=== PATIENT | female | born 1995 | race Caucasian/White ===

== ENCOUNTER 2017-02-17 22:12 | Emergency (ER) | payer OTHER ==
[~2017-02-17] VITALS: Ht 162.6 cm; Wt 63.6 kg
[2017-02-17 22:07] VITALS: TEMP 37; Ht 162.6 cm; Wt 63.6 kg
[2017-02-17 22:20] VITALS: O2SAT 98
[2017-02-17 23:01] LABS: BUN/CREATININE RATIO 8.3 (10-20); CALCIUM 8.7 mg/dl (8.5-10.1); CREATININE 0.86 mg/dl (0.60-1.20); POTASSIUM 2.9 mmol/L (3.5-5.1)
[2017-02-17] MEDS ORDERED: POTASSIUM CHLORIDE 10 MEQ TABCR PO STA (23:40)
--- NOTE | 2017-02-18 03:50 | EMERGENCY ROOM VISIT NOTE ---
History First contact with patient: 22:14 Chief Complaint: ALCOHOL OVERDOSE Stated Complaint: ALCOHOL OVERDOSE Nursing Triage Summary: pt arrives via BLS per BLS pt was found unconscious in the bathroom she arrives conscious and talking states "I drank a lot of shots." "please call my mom." pt states "I just want to sleep." History of Present Illness The patient is a 21 year old female who presents to the Emergency Room with complaints of alcohol intoxication. Patient was at the concert and was vomiting and was brought here. Patient states she drank a lot of alcohol. No drugs. Patient denies fall, chest pain, dyspnea or any other medical complaints. Review of Systems See HPI for pertinent positives & negatives. A total of 10 systems reviewed and were otherwise negative. Past Medical/Surgical History None Social History Smoking Status: Never Smoker Current/Historical Medications Unable to Obtain Active Prescriptions or Reported Meds Physical Exam Vital Signs Date Time Temp Pulse Resp B/P (MAP) Pulse Ox O2 Delivery O2 Flow Rate FiO2 02/18/17 03:00 69 18 94/48 96 Room Air 02/18/17 02:00 61 14 80/44 97 Room Air 02/18/17 01:14 58 14 90/49 96 Room Air 02/18/17 00:00 62 18 92/52 98 Room Air 02/17/17 23:12 67 14 80/44 96 Room Air 02/17/17 22:21 78 02/17/17 22:21 58 18 87/54 98 Room Air 02/17/17 22:20 98 Room Air 02/17/17 22:20 Room Air 02/17/17 22:07 37.0 72 16 140/72 98 Room Air Physical Exam PHYSICAL EXAM: VITALS: Vitals are noted on the nurse's note and reviewed by myself. Vital signs stable. GENERAL: white female with ETOH odor, in no acute distress, nondiaphoretic, well -developed well-nourished. The patient is visibly intoxicated. SKIN: The skin was without obvious lacerations, abrasions, or rashes. There is no tenting of the skin. Capillary reflex less than 2 seconds. HEENT: Normocephalic, atraumatic. PERRLA. EOMI. Conjunctiva with mild injection without icterus. Tympanic membranes without erythema or effusion bilaterally no hemotympanum. External auditory canals are clear. Nares patent bilaterally. No epistaxis. Oropharynx without erythema or exudate. Uvula midline. Oral mucosal moist. No lymphadenopathy. Neck is supple without cervical spine tenderness. HEART: Regular rate and rhythm without murmurs gallops or rubs. Peripheral pulses 2+. LUNGS: Clear to auscultation bilaterally without wheezes, rales or rhonchi. ABDOMEN: Positive bowel sounds x 4. Normal tympanic percussion. Soft, nontender, without masses or organomegaly. MUSCULOSKELETAL: Gross motor function of the upper and lower extremities intact. The patient has a staggering gait. NEUROLOGIC: The patient is visibly intoxicated. Once they were more sober they were alert and oriented to person place and time. Medical Decision & Procedures Laboratory Results 02/17/17 22:18 Test 02/17/17 22:18 Anion Gap 12.0 mmol/L (3-11) Est Creatinine Clear Calc Drug Dose 90.9 ml/min Estimated GFR () 113.5 Estimated GFR (Non- 97.9 BUN/Creatinine Ratio 8.3 (10-20) Calcium Level 8.7 mg/dl (8.5-10.1) Ethyl Alcohol mg/dL 241.0 mg/dl (0-3) ED Course Prior records/ancillary studies reviewed. Triage Nursing notes reviewed. Additional history obtained from EMS. The patient's history was concerning for altered mental status and a possible alcohol overdose. Differential diagnosis: Etiologies such as alcohol intoxication, toxicologic, infection, hypoglycemia, electrolyte abnormalities, cardiac sources, intracerebral event, neurologic, as well as others were entertained. Physical examination: As above. The patient is clinically intoxicated. no trauma noted. ER treatment provided: Monitoring Aspiration precautions The patient was frequently reassessed. Diagnostic interpretation by me: Cardiac monitoring did not reveal any evidence of dysrhythmia. The labs revealed hypokalemia and this was replaced orally. The patient's blood alcohol level was 241 mg/dL. The patient's history was reviewed once they were more coherent and their intoxication cleared. The patient states they have been in good health recently and had no medical complaints. The patient admitted to consuming alcohol. No additional concerning findings were noted. The patient complained of no symptoms to suggest assault. This appears to be consistent with an isolated overdose of alcohol. By the evaluation outlined above emergent etiologies such as trauma, infection, hypoglycemia, electrolyte abnormalities, cardiac sources, intracerebral event, neurologic,as well as others were deemed relatively unlikely. The patient was informed about the findings as listed above. The patient was counseled on the dangers of excessive alcohol use. I gave my usual and customary discussion regarding this issue. All questions were answered and the patient was pleased with the treatment. Return instructions were outlined and the patient was discharged in stable condition once their mental status improved and a safe destination was confirmed. Outpatient prescription management: None Referral: The patient was referred back to their primary care physician for follow-up in 2 to 3 days for a recheck of their current condition. Medical Decision as above Medication Reconcilliation Current Medication List: was personally reviewed by me Blood Pressure Screening Patient's blood pressure: Normal blood pressure Impression Primary Impression: Alcoholic intoxication Additional Impression: Hypokalemia Departure Information Dispostion Home / Self-Care Condition GOOD Prescriptions Unable to Obtain Active Prescriptions or Reported Meds Referrals No Doctor, Assigned (PCP) Patient Instructions My [facility] [place] [employer] Additional Instructions Keep well-hydrated. Tylenol every 6 hours as needed for pain (Maximum 3000 mg Tylenol in 24 hr period). Follow up with family doctor and/or health services as needed. No driving for the next 24 hours. Recommend no alcohol for the next 48 hours and avoid binge drinking in the future. Return to ER sooner for chest pain, abdominal pain, worsening signs or symptoms or as needed. Problem Qualifiers Primary Impression: Alcoholic intoxication Complication of substance-induced condition: uncomplicated Qualified Codes: F10.920 - Alcohol use, unspecified with intoxication, uncomplicated
[2017-02-18 04:49] VITALS: BP 98/53; PULSE 127; O2SAT 97
[2017-02-18] MEDS ORDERED: POTASSIUM CHLORIDE 10 MEQ TABCR ONE (04:59)
== END 2017-02-18 05:07 | disposition home or self-care (01) ==
LOC: C.EDB 22:14
DX: F10.129 Alcohol abuse with intoxication, unspecified (principal); Y90.8 Blood alcohol level of 240 mg/100 ml or more; E87.6 Hypokalemia

== ENCOUNTER 2021-01-24 07:24 | Inpatient (IN) ==
[2021-01-24] MEDS ORDERED: OXYTOCIN 30 UNITS/500 ML BAG IV PRN ×4 (07:28→20:26)
[2021-01-24] MEDS ORDERED: PENICILLIN G POTASSIUM 6 MU in DEXTROSE 5% 250 ML IV STA (07:30)
[2021-01-24 08:02] LABS: Hematocrit (blood only) 32.5 % (37-47); Hemoglobin 11.3 g/dL (12.0-16.0); Mean Corpuscular Hemoglobin 31.3 pg (25-34); Mean Corpuscular Hgb Conc 34.8 g/dL (32-36); Mean Platelet Volume 9.1 fL (7.4-10.4); Platelet Count 216 K/uL (130-400); RDW Coefficient of Variation 14.4 % (11.5-14.5); RDW Standard Deviation 47.5 fL (36.4-46.3); Red Blood Count 3.61 M/uL (4.2-5.4); White Blood Count 9.07 K/uL (4.8-10.8)
[2021-01-24] MEDS: LACTATED RINGER'S 1,000 ML IV PRN ×2 (08:08→15:11)
--- NOTE | 2021-01-24 09:03 | History & Physical Report ---
Date of Service January 24, 2021 Assessment & Plan (1) GBS carrier: (2) Encounter for induction of labor: (3) Rupture of membranes with clear amniotic fluid: Plan: 25yo Female presents to L&D with ROM for IOL, at 40 2/7wks. She is GBS+ -continue to monitor FHR and tocodynomometer -started Penicillin G -starting pitocin Admission and Anticipated Discharge Date Admission Date: January 24, 2021 History of Present Illness Chief Complaint: ROM Primary Care Provider: Eddie Morfin III, MAREN 25yo Female presents to L&D for ROM at 5:30am this morning, originally scheduled for IOL today. She states she felt a gush of fluid and started feeling contractions afterwards, she feels FM. She has been attending OB appointments regularly. She takes a vitamin at home. Blood Type B Positive 06/12/20 Antibody Screen NEGATIVE 06/12/20 01/24/21 07:49 Hgb 11.3 L Hct 32.5 L WBC 9.07 K/uL Plt Count 216 Rubella IgG Antibody Immune (Immune) 06/12/20 Rapid Plasma Reagin Nonreactive (Nonreactive) 06/12/20 Hepatitis B Surface Antigen Neg (Neg) 06/12/20 HIV (1&2) Ab and P24 Ag, 4th Gener Neg (Neg) 06/12/20 Glucose 1 Hour 50 gm Load 180 mg/dl (70-130) H 08/09/20 Maternal Serum Alpha Fetoprotein 42.0 ng/mL 08/09/20 GBS Positive Chlamydia trachomatis RNA NOT DETECTED (NOT DETECTED) 06/12/20 Neisseria gonorrhoeae RNA NOT DETECTED (NOT DETECTED) 06/12/20 Alpha Fetoprotein Triple Screen SEE NOTE 08/09/20 Allergies Allergy/AdvReac Type Severity Reaction Status Date / Time No Known Allergies Allergy Verified 01/23/21 15:06 Home Medications Medication Instructions Recorded Confirmed Type prenat.vits,tiffany,ntc-[id number] 1 tab PO DAILY 06/05/20 01/24/21 History Saccharomyces boulardii [Daily PO DAILY 11/27/20 01/23/21 History Probiotic (S. boulardii)] Patient History Surgical History No history of previous surgery Family History (Updated 06/05/20 @ 15:22 by Kristin Alonso) Grandfather (Maternal) Diabetes Other No pertinent family history Denies family history of Ovarian cancer Prostate cancer Myocardial infarction Breast cancer Colorectal cancer Social History (Updated 06/05/20 @ 15:23 by Kristin Alonso) Smoking Status: Never smoker Second Hand Exposure: Yes; Hx Alcohol Use: Yes Alcohol type: wine and other Alcohol Intake Frequency: 2-3 x/Week Hx Substance Use: No Preferred Language: Pakistani Communication Ability: Effective Visual Impairment: No Limitations Hearing Ability: Normal Beliefs That Will Affect Care: None marital status: marital status details: JAVIER: Jostin (28) [phone] Current Living Situation: Spouse Current Living Situation Comment: lives with JAVIER, his sisters, 1 dog. 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 Denies breast pain. Denies dysuria. Denies headache or changes in vision. Physical Exam Physical Exam: General: Alert, oriented. No acute distress. Cardiac: Regular rate and rhythm, no murmurs/rubs/gallops. Respiratory: Clear to auscultation bilaterally a/p, no wheezes/rales/rhonchi. No increased work of breathing. Symmetrical chest rise. No respiratory distress. Pelvic: Dilation 2.5 cm; Effacement 50%; Station -[address] Meyer Lower Extremities: No lower extremity edema or swelling. No deep calf pain. Rosalva's negative bilaterally Baseline:145 Variability:moderate Accelerations:none Decelerations:none Results & Data ([facility]) Vital Signs (Past 12 Hours) Vital Signs Temp Pulse Resp BP 01/24/21 07:32 88 108/65 01/24/21 07:31 36.8 C 88 20 108/65 Laboratory Results 01/24/21 01/24/21 01/24/21 Range/Units 07:49 07:45 07:45 WBC 9.07 (4.8-10.8) K/uL RBC 3.61 L (4.2-5.4) M/uL Hgb 11.3 L (12.0-16.0) g/dL Hct 32.5 L (37-47) % MCV 90.0 (80-100) fL MCH 31.3 (25-34) pg MCHC 34.8 (32-36) g/dL RDW Std Deviation 47.5 H (36.4-46.3) fL RDW Coeff of Anoop 14.4 (11.5-14.5) % Plt Count 216 (130-400) K/uL MPV 9.1 (7.4-10.4) fL COVID-19 Eval Order Covid19 [facility] SARS-CoV-2, RNA, NAAT NEGATIVE (NEGATIVE) Medications Administered Current Inpatient Medications Oxytocin (Pitocin) 30 units in 500 mls @ 333.333 mls/hr IV .Q1H30M PRN; Protocol PRN Reason: Bleeding Control Stop: 02/23/21 07:27 Penicillin G Potassium 3 mu/ (Dextrose) 106 mls @ 100 mls/hr IV Q4H PRN PRN Reason: Give until delivery Stop: 02/03/21 11:29 Oxytocin (Pitocin) 30 units in 500 mls @ 2 mls/hr IV .Q24H PRN; Protocol PRN Reason: Labor Induction/Augmentation Stop: 01/26/21 07:27 Lactated Ringer's (Lr) 1,000 mls @ 125 mls/hr IV .Q8H PRN; Protocol PRN Reason: L&D Protocol Stop: 01/26/21 07:27 Last Admin: 01/24/21 08:08 Dose: 125 mls/hr Documented by: Code Status & VTE Plan Code Status Full code VTE Prophylaxis Plan VTE Prophylaxis will be ordered: No Supervising Physician Co-Signing Physician Notes Resident Physician Supervision Note: I interviewed and examined the patient. Discussed with Dr. Zhu and agree with findings and plan as documented in the note. Any exceptions or clarifications are listed here: IUP at 40+ with gross srom and early labor. Fetus category one. Starting to contract. gbs positive and will treat with pcn. pit as indicated, epidural on demand, anticipate . Documented By: Natalia Carter MD, FACOG Resident Activity Tracking Resident Involvement: Resident Care Provided Care Provided: OB Delivery
[2021-01-24] MEDS ORDERED: ePHEDrine sulfate 50 MG/ML AMP ONE (12:33)
[2021-01-24] MEDS ORDERED: BUPIVACAINE 0.25% 30 ML VIAL ONE (12:34)
[2021-01-24] MEDS ORDERED: fentaNYL 2MCG/ML ROPIVACAINE 1.25MG/ML 100 ML BAG EPI ONE (12:34)
[2021-01-24] MEDS ORDERED: fentaNYL citrate 100 MCG/2 ML VIAL ONE (12:34)
[2021-01-24] MEDS ORDERED: SODIUM CHLORIDE 0.9% INJ 10 ML VIAL ONE (12:34)
[2021-01-24] MEDS: PENICILLIN G POTASSIUM 3 MU in DEXTROSE 5% 100 ML IV PRN ×2 (12:40→16:42)
[2021-01-24] MEDS ORDERED: NALBUPHINE HCL INJ 10 MG/ML AMP IV PRN (13:06)
[2021-01-24] MEDS ORDERED: fentaNYL 2MCG/ML ROPIVACAINE 1.25MG/ML 100 ML BAG EPI PRN (13:06)
[2021-01-24] MEDS ORDERED: NALOXONE HCL 1 MG in SODIUM CHLORIDE 0.9% 1000ML 1,000 ML IV PRN (13:06)
[2021-01-24] MEDS ORDERED: NALOXONE HCL 0.4 MG/1 ML VIAL/CARP IV PRN (13:06)
[2021-01-24] MEDS ORDERED: ONDANSETRON INJ 2 MG/ML 2 ML VIAL IV PRN (13:06)
[2021-01-24] MEDS ORDERED: ePHEDrine sulfate 50 MG/ML AMP IV PRN (13:06)
[2021-01-24] MEDS ORDERED: diphenhydrAMINE 50 MG/ML VIAL IV PRN (13:06)
--- NOTE | 2021-01-24 13:13 | Anesthesiology Consultation ---
Date of Service January 24, 2021 Assessment & Plan Chart Review Chart Review: Patient NOT seen in Pre Admission Testing and Acceptable Risk for Labor Epidural Consults Requested none ASA ASA2 Proposed Anesthesia Anesthesia Type: Labor Epidural and CSE Risk / Benefits Reviewed With: PT / POA / Parent / Guardian, Accepts Plan and Informed Consent Obtained History Height/Weight Height: 5 ft 4 in Weight: 73.482 kg Allergies Allergy/AdvReac Type Severity Reaction Status Date / Time No Known Allergies Allergy Verified 01/23/21 15:06 Medications Home Medications Medication Instructions Recorded Confirmed Last Taken prenat.vits,tiffany,bna-ymfe-fwnoe 1 tab PO DAILY 06/05/20 01/24/21 Unknown Saccharomyces boulardii [Daily PO DAILY 11/27/20 01/23/21 Unknown Probiotic (S. boulardii)] Active Medications Generic Name Dose Route Start Last Admin Trade Name Freq PRN Reason Stop Dose Admin Penicillin G Potassium 3 mu/ 106 mls @ 100 mls/hr 01/24/21 11:30 01/24/21 12:40 Dextrose IV 02/03/21 11:29 100 mls/hr Q4H PRN Administration Give until delivery Lactated Ringer's 1,000 mls @ 125 mls/hr 01/24/21 07:28 01/24/21 08:08 Lr IV 01/26/21 07:27 125 mls/hr .Q8H PRN Administration L&D Protocol Protocol Oxytocin 30 units in 500 mls @ 5 mls/hr 01/24/21 09:39 01/24/21 11:35 Pitocin IV 01/26/21 09:38 0.3 units/hr .Q24H PRN 5 mls/hr Labor Induction/Augmentation Titration Protocol 0.3 UNITS/HR NPO Date Last Intake of Fluids: 01/24/21 Time Last Intake of Fluids: 12:00 Date Last Intake of Solids: 01/24/21 Time Last Intake of Solids: 06:30 Exercise / Class Metabolic Activity II 4-5 Yardwork/Stairs/Walk up hill Past Family History Family History (Updated 06/05/20 @ 15:22 by Kristin Alonso) Grandfather (Maternal) Diabetes Other No pertinent family history Denies family history of Ovarian cancer Prostate cancer Myocardial infarction Breast cancer Colorectal cancer Past Surgical History Surgical History No history of previous surgery Past Anesthesia History No Hx of Anesthesia Complications and No Family Hx of Anesthesia Complications History of PONV No Hx of PONV and No Hx of Motion Sickness Social History Smoking Status: Never smoker Hx Alcohol Use: Yes Alcohol type: wine and other Hx Substance Use: No substance use type: does not use Review of Systems no chest pain or sob Physical Exam Vital Signs Last Vital Signs Temp 36.7 C 01/24/21 11:27 Pulse 89 01/24/21 13:07 Resp 20 01/24/21 11:27 BP 100/65 01/24/21 11:27 Pulse Ox 100 01/24/21 13:07 ENMT Mouth: no TMJ abnormality Thyromental Distance: > or= 3.5 Finger Breadths Mallampati Class: II Neck normal visual inspection Respiratory normal respiratory effort Auscultation: lungs clear to auscultation bilaterally Cardiovascular Rate/Rhythm: regular rate and regular rhythm Musculoskeletal Spine: normal cervical ROM Neurologic moves all extremities Psychiatric Orientation: alert and oriented x 3 Testing Laboratory Results 01/24/21 07:49
--- NOTE | 2021-01-24 14:17 | Labor Progress Brief Note ---
Date of Service January 24, 2021 Subjective comfortable after epidural Assessment & Plan (1) Rupture of membranes with clear amniotic fluid: (2) Encounter for induction of labor: Plan: continue current management . fetus cat 1 . anticipate . Admission and Anticipated Discharge Date Admission Date: January 24, 2021 Physical Exam Constitutional: WD/WN, vitals as above Psychiatric: A+Ox3, euthymic affect Genitourinary: OB Exam Abdomen: + regular contractions (q3-4min, pit at 5) Manual OB Exam: + cervical dilation (6), + cervical effacement (100) and + station -1 OB Exam Monitor Tracing: + external FHT monitor used, + category I and + normal FHT variability (140s); no early decelerations present and no late decelerations present Results & Data ([facility]) Vital Signs (Past 12 Hours) Vital Signs Temp Pulse Resp BP Pulse Ox 01/24/21 14:12 74 99 01/24/21 14:08 76 95/53 L 01/24/21 14:07 73 100 01/24/21 14:03 78 103/64 01/24/21 14:02 84 100 01/24/21 14:00 74 101/69 01/24/21 13:57 81 100 01/24/21 13:52 77 110/71 100 01/24/21 13:47 73 106/67 100 01/24/21 13:43 69 106/66 01/24/21 13:42 69 100 01/24/21 13:37 70 96/59 L 100 01/24/21 13:35 80 88/55 L 01/24/21 13:33 73 84/52 L 01/24/21 13:32 78 100 01/24/21 13:27 81 100/60 100 01/24/21 13:25 73 100/60 01/24/21 13:23 82 111/58 L 01/24/21 13:22 81 100 01/24/21 13:17 76 100 01/24/21 13:12 65 100 01/24/21 13:07 89 100 01/24/21 11:27 36.7 C 71 20 100/65 01/24/21 09:46 36.4 C L 20 01/24/21 07:32 88 108/65 01/24/21 07:31 36.8 C 88 20 [id number] Coding Level of Care Code None Diagnoses Rupture of membranes with clear amniotic fluid Encounter for induction of labor Z34.90
[2021-01-24] MEDS ORDERED: MINERAL OIL 30 ML UDC ONE (18:05)
--- NOTE | 2021-01-24 18:42 | Labor Progress Brief Note ---
Date of Service January 24, 2021 Subjective pushing for about one hour. good effort Assessment & Plan (1) Encounter for induction of labor: Plan: recent tachycardia, good effort. no maternal fever. fetus reassuring. continue pushing . has room, anticipate . Admission and Anticipated Discharge Date Admission Date: January 24, 2021 Physical Exam Constitutional: WD/WN, vitals as above Psychiatric: A+Ox3, euthymic affect Genitourinary: cx--c/c/+2, fanny toco--q2-3min efm--180s with mod variability, accels present, variables with some pushing Results & Data ([facility]) Vital Signs (Past 12 Hours) Vital Signs Temp Pulse Resp BP Pulse Ox 01/24/21 18:37 105 H 100 01/24/21 18:33 98 H 88 L 01/24/21 18:32 109 H 100 01/24/21 18:27 86 88 L 01/24/21 18:25 101 H 87 L 01/24/21 18:22 94 H 100 01/24/21 18:19 108 H 93 01/24/21 18:17 111 H 100 01/24/21 18:12 91 H 71 L 01/24/21 18:07 85 100 01/24/21 18:02 123 H 100 01/24/21 18:00 109 H 84 L 01/24/21 17:57 99 H 77 L 01/24/21 17:56 112 H 99/62 L 01/24/21 17:52 90 100 01/24/21 17:48 101 H 88 L 01/24/21 17:47 104 H 92 01/24/21 17:43 102 H 91 01/24/21 17:42 102 H 98 01/24/21 17:41 37.0 C 125 H 20 102/60 01/24/21 17:37 100 H 98 01/24/21 17:32 84 100 01/24/21 17:29 96 H 88 L 01/24/21 17:27 69 97 01/24/21 17:26 74 108/63 01/24/21 17:24 80 92 01/24/21 17:22 71 100 01/24/21 17:17 83 78 L 01/24/21 17:12 72 100 01/24/21 17:07 75 96 01/24/21 17:02 72 100 01/24/21 16:57 69 100 01/24/21 16:56 80 106/76 01/24/21 16:52 74 100 01/24/21 16:47 85 100 01/24/21 16:42 73 100 01/24/21 16:41 78 93 01/24/21 16:40 71 105/64 01/24/21 16:37 75 100 01/24/21 16:32 75 100 01/24/21 16:29 73 93 01/24/21 16:27 74 100 01/24/21 16:25 77 98/57 L 01/24/21 16:23 99 H 90 01/24/21 16:22 84 97 01/24/21 16:17 78 96 01/24/21 16:12 73 100 01/24/21 16:10 81 111/61 01/24/21 16:07 88 98 01/24/21 16:02 93 H 100 01/24/21 15:57 78 100 01/24/21 15:56 76 115/74 94 01/24/21 15:52 79 100 01/24/21 15:47 88 100 01/24/21 15:42 89 100 01/24/21 15:41 87 121/78 01/24/21 15:37 90 100 01/24/21 15:32 36.4 C L 82 16 99 01/24/21 15:27 80 100 01/24/21 15:25 82 112/77 01/24/21 15:22 84 100 01/24/21 15:17 79 100 01/24/21 15:12 80 100 01/24/21 15:10 81 107/74 01/24/21 15:07 84 100 01/24/21 15:02 79 100 01/24/21 14:57 80 100 01/24/21 14:55 76 112/73 01/24/21 14:52 66 100 01/24/21 14:47 97 H 99 01/24/21 14:42 77 100 01/24/21 14:41 75 105/70 01/24/21 14:37 78 100 01/24/21 14:32 72 100 01/24/21 14:27 68 98 01/24/21 14:26 72 20 100/64 01/24/21 14:22 75 99 01/24/21 14:17 71 100 01/24/21 14:12 74 99 01/24/21 14:08 76 95/53 L 01/24/21 14:07 73 100 01/24/21 14:03 78 103/64 01/24/21 14:02 84 100 01/24/21 14:00 74 101/69 01/24/21 13:57 81 100 01/24/21 13:52 77 110/71 100 01/24/21 13:47 73 106/67 100 01/24/21 13:43 69 106/66 01/24/21 13:42 69 100 01/24/21 13:37 70 96/59 L 100 01/24/21 13:35 80 88/55 L 01/24/21 13:33 36.8 C 73 18 84/52 L 01/24/21 13:32 78 100 01/24/21 13:27 81 100/60 100 01/24/21 13:25 73 100/60 01/24/21 13:23 82 111/58 L 01/24/21 13:22 81 100 01/24/21 13:17 76 100 01/24/21 13:12 65 100 01/24/21 13:07 89 100 01/24/21 11:27 36.7 C 71 20 100/65 01/24/21 09:46 36.4 C L 20 01/24/21 07:32 88 108/65 01/24/21 07:31 36.8 C 88 20 108/65 Coding Level of Care Code None Diagnoses Encounter for induction of labor Z34.90
--- NOTE | 2021-01-24 20:21 | Delivery Summary ---
Vaginal Delivery Summary Date of Service January 24, 2021 Pre-operative Diagnosis: at 40 2/7 weeks srom Post-operative Diagnosis: same Procedure: epidural pit augmentation periclitoral and first degree laceration and repair EBL: 350cc Anesthesia: epidural Procedure: The patient was admitted with gross srom for clear fluid. She was monitored expectantly and then required pitocin augmentation. She then progressed to c/c/+1. The patient pushed for 2.5hours to deliver a viable male in fanny position. The head was very slow to crown and there was a concern for the possiblity of shoulder dystocia. On the last push, the patient was placed flat and Alfa maneuver done. After the head delivered the anterior shoulder (left) delivered easily with forward momentum. The rest of the baby was then delivered without difficulty. The was placed in the maternal abdomen for drying and attention. Cord was clamped and cut at 30 secs of life. Cord blood and segment obtained. Placenta delivered spontaneous, intact with a three vessel cord. Cervix/sulci/rectum/perineum were intact. A first degree perineal laceration and a periclitoral laceration were repaired in the normal standard fashion. Hemostasis obtained with dilute pitocin and fundal massage. Apgars were 8/9. Mother and baby doing well at the end of the delivery. Vaginal Delivery Summary and 1st Degree LAC [facility] Vaginal Delivery Charge Delivery Type Details: and 1st Degree LAC
[2021-01-24] MEDS ORDERED: bisacodyL 10 MG SUPP PR PRN (20:26)
[2021-01-24] MEDS ORDERED: ACETAMINOPHEN 325 MG TAB PO PRN (20:26)
[2021-01-24] MEDS ORDERED: SUPERCREAM 0.870% 15 GM JAR EXT PRN (20:26)
[2021-01-24] MEDS ORDERED: HYDROCORTISONE ACETATE 25 MG SUPP PR PRN (20:26)
[2021-01-24] MEDS ORDERED: DIPHTHERIA/TETANUS/PERTUSSIS 0.5 ML SYR/VIAL IM ONE (20:26)
[2021-01-24] MEDS: DOCUSATE SODIUM 100 MG CAP PO SCH (21:02)
[2021-01-24] MEDS: BENZOCAINE 20% AER SPR 82.5 GM CAN EXT PRN (22:50)
--- NOTE | 2021-01-24 22:55 | Anesthesia Procedure Note ---
Date of Service January 24, 2021 Anesthesia Post Epidural Note Vital Signs Vital Signs: Temp Pulse Resp BP Pulse Ox 36.9 C 75 18 102/66 99 01/24/21 22:10 01/24/21 22:08 01/24/21 22:10 01/24/21 22:08 01/24/21 20:04 Pain Intensity Bilateral Lower Abdomen: Pain Intensity: 2 Notes Mental Status: alert / awake / arousable and participated in evaluation Nausea / Vomiting: adequately controlled Pain: adequately controlled Airway Patency, RR, SpO2: stable & adequate BP & HR: stable & adequate Hydration State: stable & adequate Neuraxial Anesthesia: was administered and sensory block is resolving Anesthetic Complications: no major complications apparent and Pt Satisfied with anesthetic care Epidural: Removed without complications and With tip intact
[2021-01-25 06:55] LABS: Hematocrit (blood only) 31.3 % (37-47); Hemoglobin 10.6 g/dL (12.0-16.0); Mean Corpuscular Hemoglobin 30.4 pg (25-34); Mean Corpuscular Hgb Conc 33.9 g/dL (32-36); Mean Corpuscular Volume 89.7 fL (80-100); Platelet Count 232 K/uL (130-400); RDW Coefficient of Variation 14.6 % (11.5-14.5); RDW Standard Deviation 47.4 fL (36.4-46.3); Red Blood Count 3.49 M/uL (4.2-5.4); White Blood Count 13.02 K/uL (4.8-10.8)
[2021-01-25] MEDS: IBUPROFEN 600 MG TAB PO PRN ×2 (07:30→20:15)
--- NOTE | 2021-01-25 08:35 | Obstetrical Progress Note ---
Date of Service <Karin Zhu DO - Last Filed: 01/25/21 08:35> January 25, 2021 Assessment & Plan <Karin Zhu DO - Last Filed: 01/25/21 08:35> (1) Encounter for care and examination after delivery: 25 yo post op day1 from , doing well. -Continue routine post care. -vital signs reviewed and WNL (Tmax 36.8) -Blood Type AB+, GBS+, Rubella immune -Encourage ambulation, monitor and control pain with Motrin, tylenol PRN, resume regular diet, monitor lochia -encourage breast feeding -hemoglobin 11.3 (01/24) -patient complains of weakness of left leg onset yesterday has improved today, may be secondary to residual from epidural or strain from labor, will continue to monitor Day #:: 1 <Natalia Carter MD, FACOG - Last Filed: 01/25/21 08:40> (1) Encounter for care and examination after delivery: Subjective <Karin Zhu DO - Last Filed: 01/25/21 08:35> Ambulation: limited ambulation (weakness in left leg, occasionally gives out when walking, has fallen once, onset since yesterday post delivery buthas improved as of today) Voiding: no voiding problems Passing Gas:: Yes Diet Tolerance:: regular diet Lochia:: Small Feeding Type:: breast feeding Current Pain Level(1-10): 2 (pain well controlled on medication) Review of Systems Positive muscle weakness Denies fever, chills, sweats Denies shortness of breath, difficulty breathing, chest pain, palpitations, chest pressure. Denies breast pain. Denies dysuria. Denies headache or changes in vision. Denies numbness tingling of extremities, loss of sensation Physical Exam <Karin Zhu DO - Last Filed: 01/25/21 08:35> General: Alert, oriented. No acute distress. Cardiac: Regular rate and rhythm, no murmurs/rubs/gallops. Respiratory: Clear to auscultation bilaterally a/p, no wheezes/rales/rhonchi. No increased work of breathing. Symmetrical chest rise. No respiratory distress. Abdomen: Soft, nontender, nondistended. Bowel sounds present. Uterus: Uterine fundus firm, palpable at cm below umbilicus. Lower Extremities: No lower extremity edema or swelling. No deep calf pain. Rosalva's negative bilaterally. Musculoskeletal: 3/5 strength left leg extension, 5/5 strength left hip extension foot dorsiflexion plantarflexion, 5/5 strength on right leg Neuro: no loss of light touch sensation in b/l LE Results & Data ([facility]) <Karin Zhu, DO - Last Filed: 01/25/21 08:35> Vital Signs (Past 12 Hours) Vital Signs Temp Pulse Pulse Resp BP BP Pulse Ox 01/25/21 03:50 36.8 C 69 16 99/67 L 100 01/24/21 23:20 36.8 C 86 17 97/66 L 99 01/24/21 22:45 18 01/24/21 22:10 36.9 C 18 01/24/21 22:08 75 102/66 01/24/21 21:53 90 105/61 01/24/21 21:40 18 01/24/21 21:39 71 104/66 01/24/21 21:38 77 93/57 L 01/24/21 21:24 89 95/53 L 01/24/21 21:10 18 01/24/21 21:08 78 109/64 01/24/21 20:55 18 01/24/21 20:53 78 109/63 01/24/21 20:40 18 01/24/21 20:38 94 H 124/66 Laboratory Results 01/25/21 Range/Units 06:36 WBC 13.02 H (4.8-10.8) K/uL RBC 3.49 L (4.2-5.4) M/uL Hgb 10.6 L (12.0-16.0) g/dL Hct 31.3 L (37-47) % MCV 89.7 (80-100) fL MCH 30.4 (25-34) pg MCHC 33.9 (32-36) g/dL RDW Std Deviation 47.4 H (36.4-46.3) fL RDW Coeff of Anoop 14.6 H (11.5-14.5) % Plt Count 232 (130-400) K/uL MPV 9.0 (7.4-10.4) fL Medications Administered Current Inpatient Medications Acetaminophen (Acetaminophen 325 Mg Tab) 650 mg PO Q6H PRN PRN Reason: Pain/MONTALVO/Fever Stop: 02/23/21 20:25 Benzocaine (Benzocaine 20% Aer Spr 82.5 Gm Can) 1 appln EXT PRN PRN PRN Reason: Perineal Discomfort Stop: 02/23/21 20:25 Last Admin: 01/24/21 22:50 Dose: 82.5 appln Documented by: Bisacodyl (Bisacodyl 5 Mg Tabec) 5 mg PO 1999 [facility] Stop: 01/25/21 20:01 Bisacodyl (Bisacodyl 10 Mg Supp) 10 mg PA DAILY PRN PRN Reason: No BM on 2nd post- day Stop: 02/23/21 20:25 Cocaine HCl (Supercream 0.870% 15 Gm Jar) 1 gm EXT BID PRN PRN Reason: Hemorrhoidal Inflammation Stop: 02/07/21 20:25 Docusate Sodium (Docusate Sodium 100 Mg Cap) 100 mg PO DAILY@ [facility] Stop: 02/23/21 20:59 Last Admin: 01/24/21 21:02 Dose: Not Given Documented by: Hydrocortisone (Hydrocortisone Acetate 25 Mg Supp) 25 mg PA BID PRN PRN Reason: Hemorrhoidal Inflammation Stop: 02/23/21 20:25 Oxytocin (Pitocin) 30 units in 500 mls @ 333.333 mls/hr IV .Q1H30M PRN; Protocol PRN Reason: Bleeding Control Last Titration: 01/24/21 22:45 Dose: Infused Documented by: Ibuprofen (Ibuprofen 600 Mg Tab) 600 mg PO Q4H PRN PRN Reason: Pain/MONTALVO/Cramping/Fever Stop: 02/23/21 20:25 Prenat Multivit/[place]/Iron/Folic Ac ( Vitamin 1 Tab) 1 tab PO DAILY@08 [facility] Stop: 02/24/21 07:59 <Natalia Carter MD, FACOG - Last Filed: 01/25/21 08:40> Co-Signing Physician Notes Resident Physician Supervision Note: I interviewed and examined the patient. Discussed with Dr. Zhu and agree with findings and plan as documented in the note. Any exceptions or clarifications are listed here: Patient having issues with her left leg. She is having weak ness in lifting the leg at the knee, extending the knee. She notes some numbness of the leg yesterday that has improved. Likely a compression injury from labor and leg positioning during the 2.5 hours of pushing. REassured. Will continue to monitor. Neuro consult if not continuing to improve. She expresses understanding. Routine care. Documented By: Natalia Carter MD, FACOG Resident Activity Tracking <Karin Zhu, DO - Last Filed: 01/25/21 08:35> Resident Involvement: Resident Care Provided Care Provided: OB Delivery
[2021-01-25] MEDS: PRENATAL VITAMIN 1 TAB PO SCH (11:30)
[2021-01-25] MEDS: DOCUSATE SODIUM 100 MG CAP PO SCH ×2 (11:30→20:16)
[2021-01-25] MEDS ORDERED: bisacodyL 5 MG TABEC PO SCH (20:00)
[2021-01-26 06:35] LABS: Hematocrit (blood only) 29.1 % (37-47); Hemoglobin 9.9 g/dL (12.0-16.0)
--- NOTE | 2021-01-26 07:27 | Obstetrical Progress Note ---
Date of Service January 26, 2021 Assessment & Plan (1) Encounter for care and examination after delivery: left leg weakness improved but still needs walker- her mother has one she can use when she gets home. will have office contact her tomorrow to see if she needs PT follow up. discharge to home today Day #:: 2 Subjective Ambulation: ambulation w/ walker Voiding: no voiding problems Passing Gas:: Yes Diet Tolerance:: regular diet Feeding Type:: breast feeding left leg weakness is improving but still needs walker for support Review of Systems All systems reviewed & are unremarkable except as noted in HPI & below Physical Exam Constitutional WD/WN, vitals as above Psychiatric A+Ox3, euthymic affect Genitourinary OB Exam Abdomen: + fundal height Fundus: + firm and + relation to umbilicus (at U) Results & Data ([facility]) Vital Signs (Past 12 Hours) Vital Signs Temp Pulse Resp BP Pulse Ox 01/25/21 23:01 97.9 F 69 16 100/65 100 01/25/21 20:00 98.1 F 86 16 104/69 99
[2021-01-26] MEDS: DOCUSATE SODIUM 100 MG CAP PO SCH (08:28)
[2021-01-26] MEDS: PRENATAL VITAMIN 1 TAB PO SCH (08:28)
[2021-01-26] MEDS: IBUPROFEN 600 MG TAB PO PRN (11:25)
[2021-01-26] MEDS: BENZOCAINE 20% AER SPR 82.5 GM CAN EXT PRN (11:52)
== END 2021-01-26 13:35 | disposition home or self-care (01) | DRG 807 ==
LOC: 4S1 07:24 → 4S2 23:00

== ENCOUNTER 2022-10-26 10:57 | Inpatient (IN) ==
[2022-10-26] MEDS ORDERED: LIDOCAINE 1% LOCAL 20 ML VIAL INFIL PRN (11:02)
[2022-10-26] MEDS ORDERED: OXYTOCIN 30 UNITS/500 ML BAG IV PRN ×2 (11:02→11:35)
[2022-10-26] MEDS ORDERED: LACTATED RINGER'S 1,000 ML IV PRN (11:02)
[2022-10-26] MEDS ORDERED: PENICILLIN G POTASSIUM 6 MU in DEXTROSE 5% 250 ML IV STA (11:09)
[2022-10-26] MEDS ORDERED: bisacodyL 10 MG SUPP PR PRN (11:35)
[2022-10-26] MEDS ORDERED: IBUPROFEN 600 MG TAB PO PRN (11:35)
[2022-10-26] MEDS ORDERED: DIPHTHERIA/TETANUS/PERTUSSIS Vaccine (Tdap, Age 7+yrs) 0.5mL SYR/VL IM ONE (11:35)
[2022-10-26] MEDS ORDERED: BENZOCAINE 20% AER SPR 82.5 GM CAN EXT PRN (11:35)
[2022-10-26] MEDS ORDERED: HYDROCORTISONE ACETATE 25 MG SUPP PR PRN (11:35)
[2022-10-26] MEDS ORDERED: ACETAMINOPHEN 325 MG TAB PO PRN (11:35)
--- NOTE | 2022-10-26 11:36 | Delivery Summary ---
Vaginal Delivery Summary Date of Service October 26, 2022 Vaginal Delivery Summary Spontaneous vaginal delivery the patient arrived in active labor with rupture membranes at 9 cm antibiotics were ordered although there was not really time to get them started she soon delivered without epidural in occiput anterior position fluid was clear loose nuchal cord passed over the head gentle traction on the baby no excessive force live vigorous female cord clamped cord blood obtained after being cut placenta removed with gentle traction IV Pitocin started uterine tone improved there is a small right-sided periclitoral tear which was actively bleeding local anesthetic was injected and this was repaired with 3-0 Vicryl note catheter was placed in the bladder during repair to avoid closure of the urethra sponge and instrument counts were correct no other tearing estimated blood loss 250 mL
[2022-10-26] MEDS ORDERED: PENICILLIN G POTASSIUM 3 MU in DEXTROSE 5% 100 ML IV PRN (14:02)
[2022-10-26 14:28] LABS: Hematocrit (blood only) 31.9 % (37.0-47.0); Hemoglobin 11.1 g/dl (12.0-16.0); Mean Corpuscular Hemoglobin 29.8 pg (25.0-34.0); Mean Corpuscular Hgb Conc 34.8 g/dL (32.0-36.0); Mean Corpuscular Volume 85.5 fL (80.0-100.0); Mean Platelet Volume 8.9 fL (9.4-12.4); Platelet Count 297 K/uL (130-400); RDW Coefficient of Variation 14.8 % (11.5-14.5); RDW Standard Deviation 46.2 fL (36.4-46.3); Red Blood Count 3.73 M/uL (4.20-5.40); White Blood Count 18.81 K/ul (4.8-10.8)
[2022-10-26] MEDS: OXYTOCIN 20 UNITS in LACTATED RINGER'S 1,000 ML IV SCH (15:26)
[2022-10-26] MEDS: DOCUSATE SODIUM 100 MG CAP PO SCH (20:51)
[2022-10-27] MEDS: OXYTOCIN 20 UNITS in LACTATED RINGER'S 1,000 ML IV SCH (00:46)
[2022-10-27 06:56] LABS: Hematocrit (blood only) 29.2 % (37.0-47.0); Hemoglobin 9.7 g/dl (12.0-16.0); Mean Corpuscular Hemoglobin 29.5 pg (25.0-34.0); Mean Corpuscular Hgb Conc 33.2 g/dL (32.0-36.0); Mean Corpuscular Volume 88.8 fL (80.0-100.0); Mean Platelet Volume 8.9 fL (9.4-12.4); Platelet Count 224 K/uL (130-400); RDW Coefficient of Variation 14.7 % (11.5-14.5); RDW Standard Deviation 47.6 fL (36.4-46.3); Red Blood Count 3.29 M/uL (4.20-5.40); White Blood Count 11.33 K/ul (4.8-10.8)
--- NOTE | 2022-10-27 07:44 | Obstetrical Progress Note ---
Date of Service <Enid Ani Baca DO - Last Filed: 10/27/22 07:44> October 27, 2022 Assessment & Plan <Enid ShepardChristiano Baca DO - Last Filed: 10/27/22 07:44> (1) care following vaginal delivery: Patient is PPD 1 s/p and doing well. - Eating well, voiding well, ambulating well - Vitals reviewed and within normal limits - Pain well controlled with analgesics - OOB, ambulation, diet progression as tolerated - Blood type: B+, GBS pos (pt arrived at hospital ready to deliver, so no tx), rubella immune - Plan to discharge tomorrow - After discharge, 6 week follow up with Dr. Grewal (2) GBS carrier: <Harish Grewal MD, FACOG - Last Filed: 10/27/22 07:49> (1) care following vaginal delivery: (2) GBS carrier: Subjective <Enid Baca DO - Last Filed: 10/27/22 07:44> Patient is a 27 yo female who is now PPD #1 following spontaneous vaginal delivery at 40 0/7 weeks. Reports feeling well this morning. She endorses minimal abdominal cramping pain. Voiding without issue. Tolerating regular meals overnight and able to ambulate some. She has passed gas. Persistent lochia with some improvement this morning. Currently breast feeding. Review of Systems Denies fever, chills, sweats. Denies SOB, difficulty breathing, chest pain, palpitations, and chest pressure. Denies breast pain. Denies dysuria. Denies headache or changes in vision. Physical Exam <Enid Ani Baca DO - Last Filed: 10/27/22 07:44> General: Alert and oriented. No acute distress. CV: Regular rate and rhythm. No murmurs. Respiratory: CTA bilaterally. No rhonchi, wheezes, or crackles. No increased work of breathing. Abdomen: Positive bowel sounds. Soft, nontender, non distended. Uterus: Fundus firm and palpable 3 cm below the umbilicus. Lower extremities: No LE edema. No deep calf pain. Results & Data <Enid Baca DO - Last Filed: 10/27/22 07:44> Vital Signs (Past 12 Hours) Vital Signs Temp Pulse Resp BP Pulse Ox O2 Del Method 10/27/22 03:30 36.7 C 85 18 94/64 L 99 Room Air 10/26/22 23:00 36.9 C 84 18 98/65 L 99 Room Air <Harish Grewal MD, FACOG - Last Filed: 10/27/22 07:49> Co-Signing Physician Notes Resident Physician Supervision Note: I was present with Dr. Baca during the history and exam. I discussed the case with the resident and agree with the findings and plan as documented in the note. Any exceptions or clarifications are listed here: [None] Documented By: Harish Grewal MD, FACOG Resident Activity Tracking <Enid Baca DO - Last Filed: 10/27/22 07:44> Resident Involvement: Resident Care Provided Care Provided: OB Delivery
[2022-10-27] MEDS: DOCUSATE SODIUM 100 MG CAP PO SCH ×2 (08:33→19:39)
[2022-10-27] MEDS: PRENATAL VITAMIN 1 TAB PO SCH (08:33)
[2022-10-27] MEDS ORDERED: bisacodyL 5 MG TABEC PO SCH (20:00)
--- NOTE | 2022-10-28 05:42 | Obstetrical Progress Note ---
Date of Service <Enid Ani Baca - Last Filed: 10/28/22 06:44> October 28, 2022 Assessment & Plan <Enid Garaynatalie - Last Filed: 10/28/22 06:44> (1) care following vaginal delivery: Patient is PPD 2 s/p and doing well. - Eating well, voiding well, ambulating well - Vitals reviewed and within normal limits - Pain well controlled with analgesics - OOB, ambulation, diet progression as tolerated - Blood type: B+, GBS pos (pt arrived at hospital ready to deliver, so no tx), rubella immune - Plan to discharge today - After discharge, 6 week follow up with Dr. Grewal (2) GBS carrier: <Charlene Arevalo, - Last Filed: 10/28/22 07:55> (1) care following vaginal delivery: (2) GBS carrier: Subjective <Enid ShepardChristiano Baca - Last Filed: 10/28/22 06:44> Patient is a 27 yo female who is now PPD #2 following spontaneous vaginal delivery at 40 0/7 weeks. Reports feeling well this morning. She denies abdomi nal cramping and pain well managed on analgesics. Voiding without issue. Tolerating regular meals overnight and able to ambulate some. She has passed gas. Persistent lochia with some improvement this morning. Currently breast feeding. Review of Systems Denies fever, chills, sweats. Denies SOB, difficulty breathing, chest pain, palpitations, and chest pressure. Denies breast pain. Denies dysuria. Denies headache or changes in vision. Physical Exam <Enid Ani Baca - Last Filed: 10/28/22 06:44> General: Alert and oriented. No acute distress. CV: Regular rate and rhythm. No murmurs. Respiratory: CTA bilaterally. No rhonchi, wheezes, or crackles. No increased work of breathing. Abdomen: Positive bowel sounds. Soft, nontender, non distended. Uterus: Fundus firm and palpable 4 cm below the umbilicus. Lower extremities: No LE edema. No deep calf pain. Results & Data <Enid Baca DO - Last Filed: 10/28/22 06:44> Vital Signs (Past 12 Hours) Vital Signs Temp Pulse Resp BP Pulse Ox O2 Del Method 10/28/22 00:00 36.7 C 66 16 97/68 L 100 Room Air 10/27/22 19:25 36.7 C 81 16 99/64 L 100 Room Air <Charlene Arevalo, - Last Filed: 10/28/22 07:55> Co-Signing Physician Notes Resident Physician Supervision Note: I interviewed and examined the patient. Discussed with Dr. Baca and agree with findings and plan as documented in the note. Any exceptions or clarifications are listed here: PPD#2 doing well, reviewed DC instructions, DC home today. Documented By: Charlene Arevalo DO Resident Activity Tracking <Enid Baca, - Last Filed: 10/28/22 06:44> Resident Involvement: Resident Care Provided Care Provided: OB Delivery
[2022-10-28] MEDS: DOCUSATE SODIUM 100 MG CAP PO SCH (08:16)
[2022-10-28] MEDS: PRENATAL VITAMIN 1 TAB PO SCH (08:16)
== END 2022-10-28 11:25 | disposition home or self-care (01) | DRG 807 ==
LOC: OPB 10:57 → 4S1 10:58 → 4E2 15:30